=== PATIENT | female | born 1950 | race Caucasian/White ===

== ENCOUNTER 2016-12-06 16:23 | Emergency (ER) | payer MEDICARE, OTHER ==
[2016-12-06] MEDS ORDERED: TETANUS/DIPHTHERIA/PERTUSSIS 0.5 ML SYRINGE IM ONE ×2 (17:09→17:13)
--- NOTE | 2016-12-06 17:11 | ED Physician Documentation ---
PD HPI SKIN - Stated complaint Stated Complaint: FOREHEAD LAC - Chief complaint Chief Complaint: Laceration - History obtained from History obtained from: Patient - History of Present Illness Timing - onset: Today (Trip and fall today, sustained a laceration of the right eyebrow. No headache or loss of consciousness, not on anticoagulants. No nausea.) Review of Systems Constitutional: denies: Fever, Chills Eyes: denies: Loss of vision, Decreased vision Ears: denies: Loss of hearing, Ear pain Nose: denies: Rhinorrhea / runny nose, Congestion PD PAST MEDICAL HISTORY - Past Medical History Past Medical History: Yes Cardiovascular: Hypertension - Present Medications Home Medications: Ambulatory Orders Medication Instructions Recorded Confirmed Amlodipine Besylate [Norvasc] 0 mg DAILY 12/06/16 12/06/16 Doxycycline Hyclate 0 mg DAILY 12/06/16 12/06/16 - Allergies Allergies/Adverse Reactions: Allergies Allergy/AdvReac Type Severity Reaction Status Date / Time Penicillins Allergy Unknown Verified 12/06/16 16:31 - Social History Does the pt smoke?: No Smoking Status: Never smoker - Immunizations Immunizations are current?: No Immunizations: TDAP >10years/unknown PD ED PE NORMAL - Vitals Vital signs reviewed: Yes - General General: Alert and oriented X 3, No acute distress - HEENT HEENT: PERRL, EOMI, Other (1 cm shallow laceration in the lateral right eyebrow without underlying bony tenderness) - Neck Neck: Supple, no meningeal sign, No bony TTP - Neuro Neuro: Alert and oriented X 3, Normal speech - Psych Psych: Normal mood, Normal affect Results - Vitals Vitals: Vital Signs - 24 hr 12/06/16 16:25 Temperature 36.6 C Heart Rate 114 H Respiratory 18 Rate Blood Pressure 178/97 H O2 Saturation 99 Oxygen O2 Source Room air Procedures - Laceration (location) rright eyebrow Length in cm: 1 Wound type: Linear Anesthesia: Lidocaine 1% with epi Wound Preparation: Irrigated copiously NS Skin layer closure: Prolene, Size #-0 - enter number (6-0), Sutures - enter # (2 ) Other: Tetanus booster given Complexity: Simple Departure - Departure Disposition: 01 Home, Self Care Clinical Impression: Facial laceration Qualifiers: Encounter type: initial encounter Qualified Code(s): S01.81XA - Laceration without foreign body of other part of head, initial encounter Condition: Good Record reviewed to determine appropriate education?: Yes Instructions: ED Head Injury Closed, ED Laceration All Comments: Wash the wound briefly but in general keep it dry and covered. Come back for any signs of infection which would include: Redness, swelling, drainage, increased pain, or fevers. Followup with your doctor in 6 days for suture removal. Your blood pressure was elevated today on check in to the emergency department. This does not mean that you have hypertension, it is a common phenomenon to check into the emergency department and have elevated blood pressure. I recommend that you see your primary care physician within the week to have it rechecked when you're feeling better.
[2016-12-06 17:32] VITALS: BP 161/90
== END 2016-12-06 17:32 | disposition home or self-care (01) ==
LOC: ED 16:23
DX: S01.111A Laceration without foreign body of right eyelid and periocular area, initial encounter (principal); W01.0XXA Fall on same level from slipping, tripping and stumbling without subsequent striking against object, initial encounter; I10 Essential (primary) hypertension
CPT/HCPCS: 12011; 90471; 99283

== ENCOUNTER 2018-03-03 22:09 | Emergency (ER) | payer MEDICARE, OTHER ==
[2018-03-03 22:15] VITALS: BP 147/95
[2018-03-03] MEDS ORDERED: CLINDAMYCIN 150 MG CAPSULE PO STA (22:33)
--- NOTE | 2018-03-03 22:38 | ED Physician Documentation ---
History of Present Illness - Stated complaint Stated Complaint: DOG BITE/R THIGH - Chief complaint Chief Complaint: Laceration - History obtained from History obtained from: Patient - History of Present Illness Timing: Today, How many hours ago (5) Pain level max: 3 Pain level now: 2 Improved by: nothing Worsened by: nothing - Additonal information Additional information: Patient is a 67-year-old female who is visiting from [place]. She states that a dog bit her on the right thigh earlier today. Bleeding has continued. Td UTD. Review of Systems Constitutional: denies: Fever, Chills Ears: denies: Ear pain Nose: denies: Rhinorrhea / runny nose, Congestion Throat: denies: Sore throat Cardiac: denies: Chest pain / pressure Respiratory: denies: Cough GI: denies: Nausea, Vomiting, Diarrhea Skin: denies: Rash Musculoskeletal: denies: Neck pain, Back pain Neurologic: denies: Headache PD PAST MEDICAL HISTORY - Past Medical History Past Medical History: Yes Cardiovascular: Hypertension - Present Medications Home Medications: Ambulatory Orders Medication Instructions Recorded Confirmed Amlodipine Besylate [Norvasc] 0 mg DAILY 12/06/16 12/06/16 Doxycycline Hyclate 0 mg DAILY 12/06/16 12/06/16 Clindamycin HCl [Clindamycin 300MG 300 mg PO Q6H #28 capsule 03/03/18 CAP] - Allergies Allergies/Adverse Reactions: Allergies Allergy/AdvReac Type Severity Reaction Status Date / Time Penicillins Allergy Unknown Verified 03/03/18 22:14 - Social History Does the pt smoke?: No Smoking Status: Never smoker - Immunizations Immunizations are current?: Yes Immunizations: TDAP current <10years (2017) PD ED PE NORMAL - Vitals Vital signs reviewed: Yes - General General: Alert and oriented X 3 - HEENT HEENT: Moist mucous membranes - Neck Neck: Supple, no meningeal sign - Derm Derm: Warm and dry - Extremities Extremities: Other (R thigh - Lateral aspect there is a 6 x 6 cm area of bruising. This is accompanied by 2 small puncture wounds. Not bleeding currently.) - Neuro Neuro: Alert and oriented X 3 - Psych Psych: Normal mood, Normal affect Results - Vitals Vitals: Vital Signs - 24 hr 03/03/18 22:10 Temperature 36.4 C L Heart Rate 97 Respiratory 18 Rate Blood Pressure 147/95 H O2 Saturation 100 Oxygen O2 Source Room air PD MEDICAL DECISION MAKING - ED course Complexity details: considered differential, d/w patient ED course: Patient is a 67-year-old female with a dog bite to the right lateral thigh. Tetanus up-to-date. Wounds were cleansed and bandaged. Will place on antibiotics for home and follow-up with her doctor. Patient counseled regarding signs and symptoms for which I believe and urgent re-evaluation would be necessary. Patient with good understanding of and agreement to plan and is comfortable going home at this time This document was made in part using voice recognition software. While efforts are made to proofread this document, sound alike and grammatical errors may occur. - Sepsis Event Vital Signs: Vital Signs - 24 hr 03/03/18 22:10 Temperature 36.4 C L Heart Rate 97 Respiratory 18 Rate Blood Pressure 147/95 H O2 Saturation 100 Oxygen O2 Source Room air Departure - Departure Disposition: 01 Home, Self Care Clinical Impression: Dog bite of extremity Condition: Good Instructions: ED Bite Dog Follow-Up: your,doctor in 3 days for wound check [Other] Prescriptions: Clindamycin HCl [Clindamycin 300MG CAP] 300 mg PO Q6H #28 capsule Comments: Take all antibiotics until gone. Return if you worsen. Return especially for redness, swelling, drainage from the wound. Keep the wound clean. Discharge Date/Time: 03/03/18 22:59
[2018-03-03] MEDS ORDERED: BACITRACIN OINT TOP ONE (22:48)
[2018-03-03] MEDS ORDERED: MORPHINE 2 MG/ML SYRINGE ONE (23:13)
== END 2018-03-03 22:59 | disposition home or self-care (01) ==
LOC: ED 22:09
DX: S71.151A Open bite, right thigh, initial encounter (principal); W54.0XXA Bitten by dog, initial encounter; I10 Essential (primary) hypertension
CPT/HCPCS: 99283; A9270